=== PATIENT | female | born 1980 | race Hispanic/Latino ===

== ENCOUNTER 2017-08-30 22:52 | Emergency (ER) | payer MEDICAID, SELFPAY ==
[2017-08-30] MEDS ORDERED: Ondansetron HCl/PF 4 MG/2 ML Vial ONE (23:38)
[2017-08-30] MEDS ORDERED: Morphine 2 MG/ML SYRINGE ONE (23:38)
[2017-08-30 23:42] LABS: Bilirubin Negative (Negative); Blood, Urine Negative (Negative); Glucose, Urine (Dipstick) Negative (Negative); Ketone, Urine Negative (Negative); Nitrite Negative (Negative); Protein, Urine (Dipstick) Negative (Neg-Trace); Urobilinogen 0.2 mg/dL (0.2-1.0)
[2017-08-30 23:56] LABS: #Lymphocytes 2.8 thou/uL (1.20-3.40); #Monocytes 0.8 thou/uL (0.11-0.59); #Neutrophils 12.9 thou/uL (1.40-6.50); %Basophils 0.1 % (0.0-1.0); %Eosinophils 0.2 % (0.0-10.0); %Lymphocytes 17.1 % (21.0-51.0); %Monocytes 4.6 % (0.0-10.0); Hematocrit 43.8 % (36.0-47.0); Mean Platelet Volume 8.3 fL (7.4-10.4); Red Blood Cell (RBC) Count 5.01 mill/uL (4.20-5.40); White Blood Cell (WBC) Count 16.6 thou/uL (4.8-10.8)
[2017-08-31] LABS: ALT (SGPT) 21 U/L (8-55); AST (SGOT) 19 U/L (5-34); Alkaline Phosphatase 72 U/L (40-150); Anion Gap 13 mmol/L (10-20); BUN (Urea Nitrogen) 7 mg/dL (7.0-18.7); Bilirubin, Total 0.7 mg/dL (0.2-1.2); Calc. Creatinine Clearance 0 mL/min (70-130); Calcium 8.8 mg/dL (7.8-10.44); Carbon Dioxide 21 mmol/L (22-29); Chloride 104 mmol/L (98-107); Estimated GFR-MDRD Greater than 90; Globulin 3.2 g/dL (2.4-3.5); Lipase 7 U/L (8-78); Protein, Total 7.5 g/dL (6.0-8.3)
[2017-08-31] MEDS ORDERED: Metoclopramide HCl 10 MG/2 ML VIAL ONE (00:53)
[2017-08-31] MEDS ORDERED: Morphine 2 MG/ML SYRINGE ONE (01:50)
--- NOTE | 2017-08-31 08:01 | CT ---
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 . .37 yo female presents with diffuse rlq and llq pain for 1 day. Patient reports intermittent diarrh ea for the last week, for which she saw her pcp this morning and was given lomotil and zofran. Patie nt states that as the day has gone on, she has had bright red blood in her stool and when she wipes. Patient denies HX of hemorrhoids. Denies fever and chills. Reports nausea and vomiting. TECHNIQUE: Axial computed tomography images of the abdomen and pelvis with intravenous contrast. Coronal reformatted images were created and reviewed. COMPARISON: No relevant prior studies available. FINDINGS: Lower thorax: The visualized portions of the lung bases are normal. ABDOMEN: Liver: There are no focal liver lesions present. Gallbladder and bile ducts: The gallbladder is normal. There is no evidence of biliary ductal dilati on. No calcified stones. Pancreas: The pancreas is normal. No ductal dilation. Spleen: The spleen is normal. Adrenals: The adrenal glands are normal. Kidneys and ureters: The kidneys are normal. No hydronephrosis. Stomach and bowel: There is diffuse colonic wall thickening and pericolonic inflammatory stranding c ompatible with colitis of infectious or inflammatory etiology. The stomach is normal. No obstruction . Appendix: A normal appendix is identified. PELVIS: Bladder: The bladder is normal. Reproductive: The uterus is normal. There is a 1.8 cm LEFT ovarian cyst. ABDOMEN and PELVIS: Intraperitoneal space: There is a small amount of free pelvic fluid present. No free air. Bones/joints: No acute fracture. No dislocation. Soft tissues: There is subcutaneous air overlying the RIGHT buttocks probably from medical injection . Vasculature: Normal. No abdominal aortic aneurysm. Lymph nodes: Normal. No enlarged lymph nodes. IMPRESSION: There is diffuse colonic wall thickening and pericolonic inflammatory stranding compatible with coli tis of infectious or inflammatory etiology. Thank you for allowing us to participate in the care of your patient. Dictated and Authenticated by: Eloy Engle MD 08/31/2017 1:59 AM Central Time ([place] \T\ [place]up[place]) FINAL REPORT CT ABDOMEN AND PELVIS WITH ORAL AND IV CONTRAST I agree with the preliminary report given by Dr. Eloy Engle of [facility]. POS: [facility]
== END 2017-08-31 03:06 | disposition home or self-care (01) ==
LOC: ERS 22:52
DX: K52.9 Noninfective gastroenteritis and colitis, unspecified (principal)
CPT/HCPCS: 74177; 80053; 81003; 82274; 83630; 83690; 84703; 85025; 87015; 87045; 87046; 87324; 87449; 87899; 96361; 96372; 96374; 96375; 96376; J2270; J2405; J2765

== ENCOUNTER 2019-02-14 14:12 | Emergency (ER) | payer SELFPAY ==
[2019-02-14 15:35] LABS: #Basophils 0.1 thou/uL (0.0-0.2); #Eosinphils 0.2 thou/uL (0.0-0.7); #Lymphocytes 1.3 thou/uL (1.20-3.40); #Monocytes 0.6 thou/uL (0.11-0.59); #Neutrophils 7.1 thou/uL (1.40-6.50); %Basophils 0.8 % (0.0-1.0); %Eosinophils 2.6 % (0.0-10.0); %Lymphocytes 14.3 % (21.0-51.0); %Monocytes 6.2 % (0.0-10.0); %Neutrophils 76.1 % (42.0-75.0); Hemoglobin 16.3 g/dL (12.0-16.0); Mean Corpuscular Hemoglobin 31.1 pg (27.0-31.0); Mean Corpuscular Volume 91.5 fL (78.0-98.0); Mean Platelet Volume 8.4 fL (7.4-10.4); Platelet Count 259 thou/uL (130-400); RBC Distribution Width 11.9 % (11.5-14.5); Red Blood Cell (RBC) Count 5.23 mill/uL (4.20-5.40); White Blood Cell (WBC) Count 9.4 thou/uL (4.8-10.8)
[2019-02-14 15:44] LABS: BHCG - Serum Negative (NEGATIVE); Pregs Control Background? CLEAR/WHITE (CLR/WHITE); Pregs Control Bar Appear? YES (CONTROL BAR)
--- NOTE | 2019-02-14 16:04 | RAD ---
XR Chest 1 View Portable History: [Chest pain. Nausea/vomiting] Comparison: None. Findings: Lungs are clear. No pneumothorax or effusion. Cardiac silhouette and mediastinal contours a re within normal limits. Impression: No acute intrathoracic abnormality.
[2019-02-14] MEDS ORDERED: Ketorolac Tromethamine 30 MG/ML VIAL ONE (16:05)
[2019-02-14] MEDS ORDERED: Morphine 4 MG/ML VIAL ONE (16:05)
[2019-02-14 17:05] LABS: Albumin 4.6 g/dL (3.5-5.0)
[2019-02-14 17:06] LABS: Chloride 104 mmol/L (98-107); Potassium 3.6 mmol/L (3.5-5.1); Sodium 138 mmol/L (136-145)
[2019-02-14 17:07] LABS: Calcium 9.5 mg/dL (7.8-10.44); Glucose 97 mg/dL (70-105)
[2019-02-14 17:08] LABS: Globulin 2.9 g/dL (2.4-3.5); Protein, Total 7.5 g/dL (6.0-8.3)
[2019-02-14 17:09] LABS: Anion Gap 13 mmol/L (10-20); Bilirubin, Total 0.6 mg/dL (0.2-1.2); Carbon Dioxide 25 mmol/L (22-29)
[2019-02-14 17:10] LABS: Alkaline Phosphatase 72 U/L (40-150)
[2019-02-14 17:11] LABS: Calc. Creatinine Clearance 0 mL/min (70-130); Estimated GFR-MDRD Greater than 90
[2019-02-14 17:12] LABS: BUN (Urea Nitrogen) 7 mg/dL (7.0-18.7)
[2019-02-14 17:13] LABS: ALT (SGPT) 24 U/L (8-55); AST (SGOT) 22 U/L (5-34)
[2019-02-14 17:14] LABS: Lipase 6 U/L (8-78)
--- NOTE | 2019-02-17 09:06 | EKG ---
Test Reason : Blood Pressure : / mmHG Vent. Rate : 071 BPM Atrial Rate : 071 BPM P-R Int : 120 ms QRS Dur : 082 ms QT Int : 376 ms P-R-T Axes : 017 037 018 degrees QTc Int : 408 ms Normal sinus rhythm Normal ECG Confirmed by SHARMIN CISNEROS D.O. ([id number]), news copy editor ANUSHKA SUNSHINE ([id number]) on 02/17/2019 9:05:53 AM Referred By: Confirmed By:SHARMIN CISNEROS D.O.
== END 2019-02-14 17:18 | disposition home or self-care (01) ==
LOC: ERS 14:12
DX: S16.1XXA Strain of muscle, fascia and tendon at neck level, initial encounter (principal); X58.XXXA Exposure to other specified factors, initial encounter
CPT/HCPCS: 36415; 71045; 80053; 83690; 84703; 85025; 87804; 93005; 96374; 96375; J1885; J2270

== ENCOUNTER 2019-08-23 19:15 | Emergency (ER) | payer SELFPAY ==
[2019-08-23 20:25] LABS: #Basophils 0.1 thou/uL (0.0-0.2); #Eosinphils 0.1 thou/uL (0.0-0.7); #Lymphocytes 2.5 thou/uL (1.20-3.40); #Monocytes 0.6 thou/uL (0.11-0.59); #Neutrophils 7.5 thou/uL (1.40-6.50); %Basophils 0.6 % (0.0-1.0); %Eosinophils 0.5 % (0.0-10.0); %Lymphocytes 23.1 % (21.0-51.0); %Monocytes 5.2 % (0.0-10.0); %Neutrophils 70.6 % (42.0-75.0); Hemoglobin 13.9 g/dL (12.0-16.0); Mean Corpuscular HGB CONC 35.6 g/dL (32.0-36.0); Mean Corpuscular Hemoglobin 32.1 pg (27.0-31.0); Mean Corpuscular Volume 90.3 fL (78.0-98.0); Mean Platelet Volume 8.3 fL (7.4-10.4); Platelet Count 261 thou/uL (130-400); RBC Distribution Width 11.4 % (11.5-14.5); Red Blood Cell (RBC) Count 4.34 mill/uL (4.20-5.40); White Blood Cell (WBC) Count 10.7 thou/uL (4.8-10.8)
[2019-08-23 20:40] LABS: BHCG - Serum Negative (NEGATIVE); Pregs Control Background? CLEAR/WHITE (CLR/WHITE); Pregs Control Bar Appear? YES (CONTROL BAR)
[2019-08-23 20:47] LABS: ALT (SGPT) 15 U/L (8-55); AST (SGOT) 16 U/L (5-34); Albumin 4.6 g/dL (3.5-5.0); Alkaline Phosphatase 66 U/L (40-110); Anion Gap 11 mmol/L (10-20); BUN (Urea Nitrogen) 13 mg/dL (7.0-18.7); Bilirubin, Total 0.6 mg/dL (0.2-1.2); Calc. Creatinine Clearance 0 mL/min (70-130); Calcium 9.1 mg/dL (7.8-10.44); Carbon Dioxide 24 mmol/L (22-29); Chloride 106 mmol/L (98-107); Estimated GFR-MDRD 87; Globulin 2.9 g/dL (2.4-3.5); Glucose 98 mg/dL (70-105); Lipase 8 U/L (8-78); Potassium 3.6 mmol/L (3.5-5.1); Protein, Total 7.5 g/dL (6.0-8.3); Sodium 137 mmol/L (136-145)
--- NOTE | 2019-08-23 20:48 | RAD ---
XR Shoulder Rt 3 View STANDARD: 08/23/2019 8:07 PM CLINICAL INDICATION: Pain COMPARISON: None. FINDINGS: Fracture:No fracture. Arthropathy:None of significance. Incidental findings:None of significance. IMPRESSION: 1. No acute osseous abnormality.
--- NOTE | 2019-08-23 20:49 | RAD ---
XR Elbow Rt 4 View STANDARD: 08/23/2019 8:07 PM CLINICAL INDICATION: Pain COMPARISON: None. FINDINGS: Fracture:No fracture. Arthropathy:None of significance. Incidental findings:None of significance. IMPRESSION: 1. No acute osseous abnormality.
--- NOTE | 2019-08-23 20:52 | RAD ---
Exam: Chest one view HISTORY:Pain Comparison: 02/14/2019 FINDINGS: Lungs: No masses or consolidation. Cardiac silhouette: Normal size Pulmonary vessels: Normal Pleural Spaces: Clear Pneumothorax: None Osseous abnormalities: None of acuity. IMPRESSION: No focal consolidation.
--- NOTE | 2019-08-23 21:24 | CT ---
CT Brain WO Con: 08/23/2019 8:01 PM CLINICAL HISTORY: Trauma. COMPARISON: None. FINDINGS: Hemorrhage: None. Ventricular system: Normal in size and morphology for the patient's age. Cerebral parenchyma: Normal Midline shift: None. Mass: No mass effect. Calvarium: Normal. Visualized Paranasal sinuses: Clear. IMPRESSION: No acute intracranial abnormalities.
--- NOTE | 2019-08-23 21:26 | CT ---
CT Cervical Spine WO Con Indication: Pain/Injury COMPARISON: None FINDINGS: Acute fracture/subluxation: None Spinal alignment: No acute malalignment. Vertebral body heights: Maintained. Cervical spine degenerative change: None of significance. IMPRESSION: No acute osseous abnormality.
--- NOTE | 2019-08-23 21:26 | RAD ---
XR Tib Fib Rt Leg 2 View: 08/23/2019 8:46 PM CLINICAL INDICATION: Trauma, injury COMPARISON: None. FINDINGS: Fracture:No fracture. Arthropathy:None of significance. Incidental findings:None of significance. IMPRESSION: 1. No acute osseous abnormality.
--- NOTE | 2019-08-23 21:31 | CT ---
EXAM: Chest, Abdomen and Pelvic CT scan with contrast: HISTORY: Trauma COMPARISON: None FINDINGS: Mild subpleural patchy densities may be on the basis of atelectasis. Linear density of the right midd le lobe may represent a small area of parenchymal scar. No pleural effusion. No pneumothorax. No acute process of the mediastinal structures. Liver: Unremarkable. Gallbladder:Unremarkable. Pancreas:Unremarkable Spleen:Unremarkable. Adrenal glands:Unremarkable. Kidneys:No renal calculus or acute obstruction.No perinephric hematoma. Bowel: No evidence for bowel obstruction. Urinary Bladder: The urinary bladder is unremarkable. Free Air: No free air. Ascites: No ascites. Osseous structures: No acute osseous abnormalities. IMPRESSION: No acute posttraumatic abnormalities are identified.
[2019-08-23] MEDS ORDERED: Ketorolac Tromethamine 30 MG/ML VIAL ONE ×2 (22:01→22:20)
[2019-08-23 22:35] LABS: Bilirubin Negative (Negative); Blood, Urine 2+ (Negative); Clarity Clear (Clear); Glucose, Urine (Dipstick) Normal (Negative); Leukocyte 75 Leu/uL (Negative); Nitrite Negative (Negative); Protein, Urine (Dipstick) Negative (Neg-Trace); RBC/HPF 0-3 HPF (0-3); Urobilinogen Normal mg/dL (Less than 2)
[2019-08-23 22:44] LABS: Bacteria/HPF Rare-Few HPF (None Seen)
--- NOTE | 2019-08-25 14:44 | EKG ---
Test Reason : Blood Pressure : / mmHG Vent. Rate : 076 BPM Atrial Rate : 076 BPM P-R Int : 118 ms QRS Dur : 080 ms QT Int : 370 ms P-R-T Axes : 012 071 035 degrees QTc Int : 416 ms Normal sinus rhythm Normal ECG Confirmed by RICHARD ALFORD DO ([id number]), general expeditor ANUSHKA SUNSHINE ([id number]) on 08/25/2019 2:43:39 PM Referred By: Confirmed By:RICHARD ALFORD DO
== END 2019-08-23 23:05 | disposition home or self-care (01) ==
LOC: ERS 19:15
DX: S20.221A Contusion of right back wall of thorax, initial encounter (principal); M54.2 Cervicalgia; M79.601 Pain in right arm; R07.9 Chest pain, unspecified; V47.5XXA Car driver injured in collision with fixed or stationary object in traffic accident, initial encounter
CPT/HCPCS: 36415; 70450; 71045; 71260; 72125; 74177; 80053; 81003; 81015; 83690; 84703; 85025; 93005; 96374; J1885

== ENCOUNTER 2020-08-07 07:26 | Outpatient (CLI) | payer OTHER ==
--- NOTE | 2020-08-07 11:18 | ULT ---
OB ULTRASOUND: HISTORY: Positive . Evaluate anatomy. FINDINGS: There is evidence of a single intrauterine gestation in cephalic presentation. Cardiac Doppler demon strates heart tones with a heart rate of 150 b.p.m. The placenta is located anteriorly w ithout evidence of placenta previa. Cervix is not well imaged but measures approximately 3.9 cm base d on transabdominal imaging. There is a normal amount of amniotic fluid with an amniotic fluid index of 18 cm. measurements: Biparietal diameter 5.3 cm, 22 weeks 1 day Head circumference 19.69 cm, 22 weeks Abdominal circumference 16.1 cm, 21 weeks 2 days Femur length 3.47 cm, 21 weeks The estimated gestational age by ultrasound is 21 weeks and 5 days with RONALDO on 12/12/2020. Gestational age by the last menstrual period is 21 weeks and 6 days. The estimated weight by ultrasound is 406 gm (14 ounces). This represents 16th percentile for weight. Cerebellum is not well seen but is grossly within normal limits. The visualized portions of the feta l spine, 4-chamber heart, stomach, bilateral kidneys, urinary bladder, and cord insertion demonstrate a normal sonographic appearance. A 3-vessel cord is not visualized, but there is flow on either jacqueline e of the urinary bladder suggesting a 3-vessel cord. No anomalies are seen on this exam. IMPRESSION: 1. Single intrauterine gestation in cephalic presentation with heart tones documented. Gestat ional age by ultrasound is 21 weeks and 5 days with estimated date of delivery on 12/13/2020. 2. Estimated weight by ultrasound is 406 gm (14 ounces). This represents 16th percentile for weight. 3. Amniotic fluid index is calculated at 18 cm. POS: OFF
== END 2020-08-07 07:27 | disposition home or self-care (01) ==
LOC: BICULT 07:26
PROVIDERS: ATTEND Family Medicine
DX: O09.522 Supervision of elderly multigravida, second trimester (principal); Z3A.21 21 weeks gestation of pregnancy
CPT/HCPCS: 76805

== ENCOUNTER 2020-10-23 19:31 | Observation (INO) | payer OTHER, SELFPAY ==
[2020-10-23 20:18] VITALS: BMI 30.7
[2020-10-23] MEDS ORDERED: hydrALAZINE 20 MG/ML VIAL SLOW IVP PRN ×2 (20:45→22:32)
[2020-10-23 21:22] LABS: Bacteria/HPF None Seen HPF (None Seen); Bilirubin Negative (Negative); Blood, Urine Negative (Negative); Clarity Clear (Clear); Glucose, Urine (Dipstick) Normal (Negative); Ketone, Urine 100 mg/dL (Negative); Leukocyte Negative Leu/uL (Negative); Nitrite Negative (Negative); Protein, Urine (Dipstick) Negative (Neg-Trace); RBC/HPF 0-3 HPF (0-3); Specific Gravity, Urine 1.022 (1.002-1.036); Squamous Epithelial 0-3 HPF (0-3); Urobilinogen Normal mg/dL (Less than 2); WBC/HPF 0-3 HPF (0-3)
[2020-10-23 21:24] LABS: Urine Culture Reflex No No
[2020-10-23 21:35] LABS: #Basophils 0.1 thou/uL (0.0-0.2); #Eosinphils 0.1 thou/uL (0.0-0.7); #Lymphocytes 2.8 thou/uL (1.20-3.40); #Monocytes 0.6 thou/uL (0.11-0.59); #Neutrophils 3.9 thou/uL (1.40-6.50); %Basophils 0.7 % (0.0-1.0); %Eosinophils 0.8 % (0.0-10.0); %Lymphocytes 38.3 % (21.0-51.0); %Neutrophils 52.2 % (42.0-75.0); Hemoglobin 12.2 g/dL (12.0-16.0); Mean Corpuscular HGB CONC 34.9 g/dL (32.0-36.0); Mean Corpuscular Hemoglobin 31.3 pg (27.0-31.0); Mean Corpuscular Volume 89.6 fL (78.0-98.0); Platelet Count 187 thou/uL (130-400); RBC Distribution Width 12.1 % (11.5-14.5); Red Blood Cell (RBC) Count 3.91 mill/uL (4.20-5.40); White Blood Cell (WBC) Count 7.4 thou/uL (4.8-10.8)
[2020-10-23 22:00] LABS: Anion Gap 14 mmol/L (10-20); BUN (Urea Nitrogen) 10 mg/dL (7.0-18.7); Calc. Creatinine Clearance 157 mL/min (70-130); Calcium 8.4 mg/dL (7.8-10.44); Carbon Dioxide 18 mmol/L (22-29); Chloride 108 mmol/L (98-107); Glucose 75 mg/dL (70-105); Potassium 3.5 mmol/L (3.5-5.1); Sodium 136 mmol/L (136-145)
[2020-10-23] MEDS ORDERED: Betamet Acet/Betamet Na Ph 30 MG/5 ML VIAL ONE (22:16)
[2020-10-23] MEDS ORDERED: Lidocaine 1% (PF) 30 ML VIAL SC PRN (22:32)
[2020-10-23] MEDS ORDERED: Butorphanol Tartrate 1 MG/ML VIAL SLOW IVP PRN (22:32)
[2020-10-23] MEDS ORDERED: NS / Oxytocin 40 units/1000ml 1,000 ML IV PRN (22:32)
[2020-10-23] MEDS ORDERED: Promethazine HCl 25 MG/ML VIAL IM PRN (22:32)
[2020-10-23] MEDS ORDERED: Ondansetron PF 4 MG/2 ML Vial IVP PRN (22:32)
[2020-10-23] MEDS ORDERED: NIFEdipine 10 MG CAP ONE (22:35)
[2020-10-23] MEDS: Betamet Acet/Betamet Na Ph 30 MG/5 ML VIAL IM SCH (22:52)
[2020-10-23] MEDS ORDERED: Lactated Ringer's 1,000 ML IV SCH (23:00)
[2020-10-23 23:06] LABS: Hemoglobin 11.8 g/dL (12.0-16.0); Mean Corpuscular Hemoglobin 32.3 pg (27.0-31.0); Mean Corpuscular Volume 92.3 fL (78.0-98.0); Mean Platelet Volume 8.9 fL (7.4-10.4); Platelet Count 158 thou/uL (130-400); RBC Distribution Width 12.2 % (11.5-14.5); Red Blood Cell (RBC) Count 3.65 mill/uL (4.20-5.40); White Blood Cell (WBC) Count 6.5 thou/uL (4.8-10.8)
--- NOTE | 2020-10-23 23:24 | HP ---
TIME OF SERVICE: 2199. PRESENTING COMPLAINT: Cramping, history of UTI, 32 weeks' gestation. HISTORY OF PRESENT ILLNESS: Ms. Jay Sánchez is a 40-year-old 5, para 4, 32 weeks by stated EDC. Antepartum record not available. She reports being started on antibiotics for UTI approximately 3 to 4 days ago. She reports 5 days of lower abdominal cramping that comes and goes about every 10 to 20 minutes. She denies bleeding or rupture of membranes. She denies fever. She was diagnosed with UTI at [facility]. LEAD RECREATION ASSISTANT HISTORY: at term x4; gestational diabetes, diet controlled. PAST MEDICAL HISTORY: None. PAST SURGICAL HISTORY: None. ALLERGIES: NONE. MEDICATIONS: Keflex, baby aspirin, and vitamins. SOCIAL HISTORY: Denies tobacco, alcohol, or drug abuse. FAMILY HISTORY: Noncontributory. REVIEW OF SYSTEMS: Noncontributory. PHYSICAL EXAMINATION: GENERAL: female, occasional discomfort. VITAL SIGNS: Temperature 98.2, pulse 92, respirations 18, blood pressure 128/72. HEENT: Within normal limits. LUNGS: Clear to auscultation bilaterally. HEART: Regular rate and rhythm. ABDOMEN: No CVA tenderness noted. Fundal height 32. FHTs 140s. PELVIC: Vulva without lesions. Vagina without discharge. Cervix; 2, 50, -2, by RN exam, cephalic, lot of adhesions. EXTREMITIES: Without clubbing, cyanosis, or edema. LABORATORY DATA: No urine cultures in the system. White count is 7.4, hematocrit is 35.1, platelet count is 187. Urinalysis is positive for ketones, otherwise negative. IMPRESSION: Contractions and cervical dilatation at 32 weeks' gestation in presence of partially treated urinary tract infection. PLAN: 1. Observation. 2. Antepartum corticosteroids. 3. Nifedipine for labor. 4. Continue Keflex 500 p.o. t.i.d. Job ID: [id number]
[2020-10-23 23:33] LABS: Syphilis Antibody Nonreactive (Nonreactive); Syphilis Antibody Index 0.03 S/CO (<1.00 Non-Reactive)
[2020-10-23 23:34] LABS: HBSAg Index 0.18 S/CO (0-0.99); HIV (1/2) Antibody/Antigen Non-Reactive (NonReactive); HIV 1/2 INDEX 0.08 S/CO (<1.00); Hep B Surf Ag Non-Reactive S/CO (NonReactive)
[2020-10-24] MEDS ORDERED: NIFEdipine 10 MG CAP ONE ×2 (03:01)
[2020-10-24] MEDS: Lactated Ringer's 1,000 ML IV SCH ×3 (04:43→19:01)
[2020-10-24 05:46] LABS: SARS-CoV-2 MS2 Positive; SARS-CoV-2 N Gene Negative; SARS-CoV-2 S Gene Negative; SARS-CoV-2 by NAA Not Detected (NotDetected); SARS-CoV-2 orf1ab Negative
--- NOTE | 2020-10-24 07:20 | PRG ---
DATE OF SERVICE: 10/24/2020 TIME OF SERVICE: 0645. The patient is resting comfortably. She has occasional contractions. She denies leakage of fluid. Active fetus. PHYSICAL EXAMINATION: VITAL SIGNS: Blood pressure 118/72, pulse 85, respirations 18. ABDOMEN: Soft and nontender. No CVA tenderness. No suprapubic tenderness. Vaginal exam is deferred. Perineum is dry. EXTREMITIES: No clubbing, cyanosis, or edema. monitoring reveals baseline 140s to 150s, positive accelerations, no decelerations, occasional uterine irritability approximately every 30 minutes. IMPRESSION: Possible arrested labor versus cervical dilatation at 32 weeks' gestation, with treated urinary tract infection, COVID negative. PLAN: Continue bed rest. Continue oral Keflex as prescribed by Dr. Milan. Second dose of betamethasone at approximately 2300 on 10/24. Anticipate discharge home at that time. Dr. Montana coming on as OB hospitalist, we will check the patient out to him. Job ID: [id number]
[2020-10-24] MEDS ORDERED: Prenatal Vitamin 1 TAB PO SCH (09:00)
[2020-10-24] MEDS ORDERED: Aspirin Chewable 81 MG TAB PO SCH (09:00)
[2020-10-24] MEDS ORDERED: CEPHALEXIN 500 MG PO SCH (09:00)
[2020-10-24] MEDS: Cephalexin 250 MG CAP PO SCH ×3 (09:54→21:08)
[2020-10-24 10:14] VITALS: BP 89/52; TEMP 97.7
[2020-10-24] MEDS: Betamet Acet/Betamet Na Ph 30 MG/5 ML VIAL IM SCH (22:48)
--- NOTE | 2020-10-24 23:28 | PDOC.BPN ---
<Missael Olivares - Last Filed: 10/24/20 23:23> - Brief Progress Note Encounter Date: 10/24/20 Encounter Time: 23:28 Patient has now received 2 doses of betamethasone while receiving continued treatment for her UTI. She has shown no signs of pyelonephritis at this point. She has had intermittent contractions through the day the the patient was feeling so she was checked again and found to be unchanged, ruling out pre-term labor. status has remained reassuring throughout her stay. We discussed with the patient the need for her to continue her oral antibiotics after discharge. She has a follow up with her primary OB, Dr. Milan, in 4 days. We discussed return precautions with the patient. <Axel Montana - Last Filed: 10/25/20 06:12> Addendum - Attending - Attending Attestation Date/Time: 10/25/20 0611 I personally evaluated the patient and discussed the management with Dr. Olivares. I agree with the History, Examination, Assessment and Plan documented above.
== END 2020-10-24 23:35 | disposition home health service (06) ==
LOC: L&D/OP 19:31 → L&D 22:02
PROVIDERS: ADMIT Obstetrics & Gynecology; ATTEND Obstetrics & Gynecology
DX: O47.03 False labor before 37 completed weeks of gestation, third trimester (principal); O24.410 Gestational diabetes mellitus in pregnancy, diet controlled; O34.33 Maternal care for cervical incompetence, third trimester; O23.43 Unspecified infection of urinary tract in pregnancy, third trimester; O09.523 Supervision of elderly multigravida, third trimester; Z3A.32 32 weeks gestation of pregnancy; Z79.82 Long term (current) use of aspirin; Z20.828 Contact with and (suspected) exposure to other viral communicable diseases
CPT/HCPCS: 36415; 80048; 81001; 85025; 86780; 86850; 86900; 86901; 87340; 87389; 87635; 96372; 96374; 99285; G0378; J0595; J0702; U0003

== ENCOUNTER 2020-11-14 23:13 | Day surgery (SDC) | payer OTHER ==
[2020-11-14 23:51] VITALS: BMI 29.2
[2020-11-15] MEDS ORDERED: hydrALAZINE 20 MG/ML VIAL SLOW IVP PRN (00:07)
--- NOTE | 2020-11-15 00:07 | PDOC.FPROB ---
FMR OB H&P: HPI - History of Present Illness Chief Complaint: Ctx Indentification: 40yo @ 36wks presents for ctx and urinary sxs History of Present Illness: 40yo @ 36wks complicated by AMA and A1GDM presents for ctx and urinary sxs. Patient was seen in L&D at 32weeks for labor r/o, at that time was given steroids, antibiotics for UTI, and SVE was 2cm/50%. Patient states that for past 1 week she has had intermittent ctx, over past 24-48 hours these have increased in intensity and frequency to about [id number]. Associated suprapubic pain, dysuria, and frequency. Endorses good movement. Denies any fever/chills, n/v, CP, SOB, ZHENG, vision changes, or recent illnesses. Denies change in vaginal discharge or sudden gush of fluid. Primary Care Physician: Bjorn FMR OB H&P: Current - Care : 5 Para: 4004 Gestational age: 36 FMR OB H&P: History - Past Medical History PMH: Denies - OB History OB History: A1GDM in current Previous x4 - OPERATING ENGINEER History OPERATING ENGINEER History: Denies. - Surgical History Sx History: None - Social History Social History: No tob, EtOH, or illicits. - Family History Family History: Noncontributory FMR OB H&P: Medications - Current Home Medications: Medication Instructions Recorded Confirmed Type Pnv No.95/Ferrous Fum/Folic AC 1 tab PO DAILY 02/15/17 11/14/20 History [ Tablet] Aspirin Chewable [Aspirin Chewable 1 tab PO DAILY 10/23/20 11/14/20 History Tablet] Allergies/Adverse Reactions: Allergies Allergy/AdvReac Type Severity Reaction Status Date / Time No Known Allergies Allergy Verified 11/14/20 23:52 FMR OB H&P: ROS - Review of Systems General: denies: fever/chills, night sweats, fatigue, recent trauma Eyes: denies: vision changes, double vision ENT: denies: nasal congestion, rhinorrhea, sore throat Cardiovascular: denies: chest pain, palpitation, edema Respiratory: denies: cough, congestion, shortness of breath Gastrointestinal: reports: abdominal pain. denies: nausea, vomiting, diarrhea, constipation Genitourinary (Female): reports: dysuria, polyuria, hesitancy, contractions. denies: incontinence, hematuria, vaginal discharge, vaginal bleeding Musculoskeletal: reports: pain (lower back pain) Integumentary: denies: rash Psychological: denies: depression, anxiety FMR OB H&P: Vital Signs - Maternal Vital signs: T 98.3, HR 75, RR 18, BP 114/61 - Heart Tones Baseline: 140 Variability: moderate Acceleration: present Deceleration: absent Category: category 1 Valatie contractions every: q10min FMR OB H&P: Physical Exam - Physical Exam General: NAD, awake, alert and oriented HEENT: PERRLA, EOMI, MMM, conjunctiva clear Neck: trachea midline Heart: RRR, normal S1/S2, no murmurs/rubs/gallops, no edema General: CTAB, no respiratory distress, good air movement, no rales/rhonchi, no wheezing Abdomen: soft, bowel sound present Deviation from normal: Suprapubic TTP, no rebound or guarding. No CVA tenderness Deviation from normal: Lower back soreness to light palpation Neurological: no focal deficit Skin: no rash Psychiatric: intact recent and remote memory - Pelvic Exam Vulva: normal hair distribution Deviation from normal: Erythema of labia, swelling and tenderness Cervix: no masses, no lesions, no blood SVE: 2/50/-3 FMR OB H&P: A/P - Problem List (1) Dysuria during Status: Acute Code(s): O26.899 - OTH RELATED CONDITIONS, UNSPECIFIED TRIMESTER; R30.0 - DYSURIA (2) contractions Status: Acute Code(s): O47.9 - FALSE LABOR, UNSPECIFIED Disposition: 40yo @ 36wks complicated by AMA and A1GDM presents for ctx and urinary sxs. # labor r/o - 36wks today - S/p steroids at 32 weeks - SVE 2cm/50/-3, unchanged from labor r/o at 32 weeks - Contractions q10min on monitor, Cat 1 FHT - spaced to q15min - Endorses good movement, no LOF or vaginal bleeding. #Dysuria/vaginal pain - VSS, afebrile - Clean catch UA with 21-50 squams - Straight cath UA clean other than ketones - Urine Culture obtained - VP3 obtained - Spec exam with labial swelling, erythema and tenderness, suspected yeast infection - Given morphine and phenergan for pain - Recommend Monistat 7 PCP: Bjorn Dispo: Straight Cath UA negative for UTI. Culture obtained. VP3 obtained. Suspected yeast infection. Recommend good hygiene, barrier cream, and Monistat 7. SVE unchanged and ctx spaced, no evidence of labor. S/p steroids at 32 weeks. Encourage hydration. Tylenol prn. Labor/return precautions given. Patient voiced understanding and agreement. Discharged home. All questions answered. Discussion: Date/Time: 11/15/206 This H&P was discussed with Dr. Hurtado who agrees with the above documentation and plan. Addendum - Attending - Attending Attestation Date/Time: 11/16/20932 I personally evaluated the patient and discussed the management with Dr. Lovell I agree with the History, Examination, Assessment and Plan documented above with any addition or exceptions noted below. PT reports several days of sharp llq pain, pain of vaginal area with urination. On exam vestibular region very erythematous in, very tender to light touch. vp3 has returned and is positve for gardinella. clinical features consistent with yeast vulvovaginitis. Pt given instructions to use a barrior cream and monistat. Metronidazole will be called in for BV. 7.
[2020-11-15 00:16] LABS: Bacteria/HPF 2+ HPF (None Seen); Bilirubin Negative (Negative); Blood, Urine Negative (Negative); Clarity Turbid (Clear); Glucose, Urine (Dipstick) Normal (Negative); Ketone, Urine Negative (Negative); Leukocyte 500 Leu/uL (Negative); Nitrite Negative (Negative); Protein, Urine (Dipstick) Negative (Neg-Trace); Squamous Epithelial 21-50 HPF (0-3); Urobilinogen Normal mg/dL (Less than 2); WBC/HPF 21-50 HPF (0-3)
[2020-11-15 00:46] LABS: Bacteria/HPF None Seen HPF (None Seen); Bilirubin Negative (Negative); Blood, Urine Negative (Negative); Clarity Clear (Clear); Glucose, Urine (Dipstick) Normal (Negative); Ketone, Urine 20 mg/dL (Negative); Leukocyte Negative Leu/uL (Negative); Mucous/LPF 1+ LPF (<2+); Nitrite Negative (Negative); Protein, Urine (Dipstick) Negative (Neg-Trace); RBC/HPF 0-3 HPF (0-3); Squamous Epithelial 0-3 HPF (0-3); Urobilinogen Normal mg/dL (Less than 2); WBC/HPF 0-3 HPF (0-3)
[2020-11-15] MEDS ORDERED: Morphine 10 MG/ML VIAL IM SCH (01:30)
[2020-11-15] MEDS ORDERED: Promethazine HCl 25 MG/ML VIAL IM SCH (01:30)
== END 2020-11-15 01:40 | disposition home or self-care (01) ==
LOC: L&D/OP 23:13
PROVIDERS: ATTEND Family Medicine
DX: O47.03 False labor before 37 completed weeks of gestation, third trimester (principal); O24.410 Gestational diabetes mellitus in pregnancy, diet controlled; O23.593 Infection of other part of genital tract in pregnancy, third trimester; B96.89 Other specified bacterial agents as the cause of diseases classified elsewhere; O26.893 Other specified pregnancy related conditions, third trimester; R30.0 Dysuria; O09.523 Supervision of elderly multigravida, third trimester; Z3A.36 36 weeks gestation of pregnancy; Z79.82 Long term (current) use of aspirin
CPT/HCPCS: 81001; 87086; 87480; 87510; 87660; J2270; J2550

== ENCOUNTER 2020-12-05 07:49 | Outpatient (CLI) | payer OTHER ==
[2020-12-05 22:14] LABS: SARS-CoV-2 PCR by NAA Not Detected (NotDetected)
== END 2020-12-05 07:50 | disposition home or self-care (01) ==
LOC: LABBT 07:49
PROVIDERS: ATTEND Family Medicine
DX: Z01.812 Encounter for preprocedural laboratory examination (principal); Z20.822 Contact with and (suspected) exposure to COVID-19
CPT/HCPCS: 87635; U0003; U0005

== ENCOUNTER 2020-12-08 18:00 | Inpatient (IN) | payer MEDICAID, OTHER, SELFPAY ==
[~2020-12-08 18:00] MED LIST: Bupivacaine 0.25% HCL 30 ML VIAL ONE; ePHEDrine 50 MG/ML VIAL ONE
[2020-12-08] MEDS ORDERED: Lidocaine 1% (PF) 30 ML VIAL SC PRN (19:19)
[2020-12-08] MEDS ORDERED: Ondansetron PF 4 MG/2 ML Vial IVP PRN (19:19)
[2020-12-08] MEDS ORDERED: hydrALAZINE 20 MG/ML VIAL SLOW IVP PRN (19:19)
[2020-12-08] MEDS ORDERED: Methylergonovine 0.2 MG/ML VIAL IM PRN (19:19)
[2020-12-08] MEDS ORDERED: HYDROcodone/Acetaminophen 5/325 mg Tablet PO PRN (19:19)
[2020-12-08] MEDS ORDERED: Misoprostol 200 MCG TAB PR PRN (19:19)
[2020-12-08] MEDS ORDERED: Carboprost 250 MCG/ML AMP IM PRN (19:19)
[2020-12-08] MEDS ORDERED: NS / Oxytocin 40 units/1000ml 1,000 ML IV PRN (19:19)
[2020-12-08] MEDS ORDERED: Ibuprofen 800 MG TAB PO PRN (19:19)
[2020-12-08] MEDS ORDERED: Promethazine HCl 25 MG/ML VIAL IM PRN (19:19)
[2020-12-08] MEDS ORDERED: Diphenoxylate HCl/Atropine Tablet PO PRN (19:19)
[2020-12-08] MEDS ORDERED: NS w/ Oxytocin 30 units 500 ML IV PRN (19:24)
[2020-12-08 19:40] LABS: Hemoglobin 12.5 g/dL (12.0-16.0); Mean Corpuscular HGB CONC 34.1 g/dL (32.0-36.0); Mean Corpuscular Hemoglobin 29.6 pg (27.0-31.0); Mean Corpuscular Volume 86.7 fL (78.0-98.0); Mean Platelet Volume 9.7 fL (7.4-10.4); Platelet Count 183 thou/uL (130-400); RBC Distribution Width 12.5 % (11.5-14.5); Red Blood Cell (RBC) Count 4.23 mill/uL (4.20-5.40); White Blood Cell (WBC) Count 7.7 thou/uL (4.8-10.8)
[2020-12-08] MEDS: Lactated Ringer's 1,000 ML IV SCH (19:40)
[2020-12-08 19:51] LABS: Glucose 89 mg/dL (70-105)
[2020-12-08 20:15] LABS: HBSAg Index 0.21 S/CO (0-0.99); Hep B Surf Ag Non-Reactive S/CO (NonReactive); Syphilis Antibody Nonreactive (Nonreactive); Syphilis Antibody Index 0.04 S/CO (<1.00 Non-Reactive)
[2020-12-08 20:24] VITALS: BMI 29.7
[2020-12-08] MEDS: Misoprostol 100 MCG TAB VAG SCH (21:24)
[2020-12-09] MEDS: Misoprostol 100 MCG TAB VAG SCH ×3 (00:36→13:41)
[2020-12-09] MEDS ORDERED: Fentanyl 4 mcg/Bup 0.1% Cadd 100 ML ONE ×2 (01:12→09:04)
[2020-12-09] MEDS ORDERED: ePHEDrine 50 MG/ML VIAL SLOW IVP PRN (01:43)
[2020-12-09] MEDS ORDERED: diphenhydrAMINE 50 MG/ML VIAL IVP PRN (01:43)
[2020-12-09] MEDS ORDERED: Promethazine HCl 25 MG/ML VIAL IM PRN ×2 (01:43→10:30)
[2020-12-09] MEDS ORDERED: Naloxone HCl 0.4 mg/ml Vial IVP PRN ×2 (01:43)
[2020-12-09] MEDS ORDERED: Ondansetron PF 4 MG/2 ML Vial IVP PRN ×2 (01:43→10:30)
[2020-12-09] MEDS ORDERED: Acetaminophen 325 MG TAB PO PRN (01:43)
[2020-12-09] MEDS ORDERED: Lactated Ringer's 500 ML IV PRN (01:43)
[2020-12-09] MEDS ORDERED: Communication Order-Pharmacy FS SCH (01:45)
[2020-12-09] MEDS ORDERED: Fentanyl 4 mcg/Bupivacaine 0.1% Cassette 100 ML EPIDURAL SCH (01:45)
[2020-12-09] MEDS ORDERED: Misoprostol 200 MCG TAB ONE (08:00)
[2020-12-09] MEDS ORDERED: Lidocaine 1% (PF) 30 ML VIAL ONE (08:00)
[2020-12-09] MEDS ORDERED: Carboprost 250 MCG/ML AMP ONE (08:01)
[2020-12-09] MEDS ORDERED: Methylergonovine 0.2 MG/ML VIAL ONE (08:01)
[2020-12-09] MEDS ORDERED: Lanolin Ointment 7 GM TUBE TOP PRN (10:30)
[2020-12-09] MEDS ORDERED: Milk Of Magnesia 30 ML UDCUP PO PRN (10:30)
[2020-12-09] MEDS ORDERED: Benzocaine-Menthol 82.5 ML CAN TOP PRN (10:30)
[2020-12-09] MEDS ORDERED: Bisacodyl 10 MG SUPP PR PRN (10:30)
[2020-12-09] MEDS ORDERED: hydrALAZINE 20 MG/ML VIAL SLOW IVP PRN (10:30)
[2020-12-09] MEDS ORDERED: diphenhydrAMINE 25 MG CAP PO PRN (10:30)
[2020-12-09] MEDS ORDERED: NS w/ Oxytocin 30 units 500 ML IVPB SCH (10:45)
[2020-12-09] MEDS: HYDROcodone/Acetaminophen 5/325 mg Tablet PO PRN (12:21)
[2020-12-09] MEDS: Ibuprofen 800 MG TAB PO SCH ×2 (13:27→21:23)
[2020-12-09] MEDS: Ferrous Sulfate 325 MG TAB PO SCH (13:42)
[2020-12-09] MEDS ORDERED: Lactated Ringer's 1,000 ML IV SCH (21:15)
[2020-12-09] MEDS: Docusate Calcium (SURFAK) 240 MG CAP PO SCH (21:23)
[2020-12-10] MEDS: Ibuprofen 800 MG TAB PO SCH ×3 (05:45→21:38)
[2020-12-10] MEDS: Ferrous Sulfate 325 MG TAB PO SCH ×2 (07:42→15:23)
[2020-12-10] MEDS ORDERED: Adacel (T-DAP) 0.5 ML SYRINGE IM ONE (09:00)
[2020-12-10] MEDS: Prenatal Vitamin 1 TAB PO SCH (10:42)
[2020-12-10] MEDS: Docusate Calcium (SURFAK) 240 MG CAP PO SCH ×2 (10:42→21:38)
[2020-12-10] MEDS: HYDROcodone/Acetaminophen 5/325 mg Tablet PO PRN (10:43)
[2020-12-11] MEDS: Ibuprofen 800 MG TAB PO SCH ×2 (06:10→15:00)
[2020-12-11 07:58] VITALS: BP 94/52; TEMP 98.4
[2020-12-11] MEDS: Docusate Calcium (SURFAK) 240 MG CAP PO SCH (10:08)
[2020-12-11] MEDS: Prenatal Vitamin 1 TAB PO SCH (10:08)
[2020-12-11] MEDS: Ferrous Sulfate 325 MG TAB PO SCH (10:09)
[2020-12-11] MEDS: HYDROcodone/Acetaminophen 5/325 mg Tablet PO PRN (10:11)
[2020-12-11] MEDS: Lactated Ringer's 1,000 ML IV SCH (10:35)
== END 2020-12-11 18:25 | disposition home or self-care (01) | DRG 807 ==
LOC: L&D 18:45 → 3SW 12-09 12:10
PROVIDERS: ADMIT Family Medicine; ATTEND Family Medicine
PROC: 10E0XZZ Delivery of Products of Conception, External Approach (ICD-10-PCS; principal; 2020-12-09)
DX: O24.429 Gestational diabetes mellitus in childbirth, unspecified control (principal); Z37.0 Single live birth; Z3A.39 39 weeks gestation of pregnancy; Z20.822 Contact with and (suspected) exposure to COVID-19
CPT/HCPCS: 36415; 36416; 51702; 82947; 85027; 86780; 86850; 86900; 86901; 87340; J2590; J3490; S0020

== ENCOUNTER 2023-01-30 18:42 | Emergency (ER) | payer MEDICAID, SELFPAY ==
[2023-01-30 19:27] LABS: BHCG - Serum POSITIVE (NEGATIVE); Pregs Control Background? CLEAR/WHITE (CLR/WHITE); Pregs Control Bar Appear? YES (CONTROL BAR)
[2023-01-30 19:42] LABS: ALT (SGPT) 19 U/L (8-55); AST (SGOT) 22 U/L (5-34); Albumin 4.5 g/dL (3.5-5.0); Alkaline Phosphatase 76 U/L (40-110); Anion Gap 14 mmol/L (10-20); BUN (Urea Nitrogen) 8 mg/dL (7.0-18.7); Bilirubin, Total 0.4 mg/dL (0.2-1.2); Calc. Creatinine Clearance 0 mL/min (70-130); Calcium 9.2 mg/dL (7.8-10.44); Carbon Dioxide 19 mmol/L (22-29); Chloride 108 mmol/L (98-107); Estimated GFR 113; Globulin 3.2 g/dL (2.4-3.5); Glucose 113 mg/dL (70-105); Lipase 10 U/L (8-78); Potassium 3.8 mmol/L (3.5-5.1); Protein, Total 7.7 g/dL (6.0-8.3); Sodium 137 mmol/L (136-145)
[2023-01-30 19:55] LABS: #Basophils 0.1 thou/uL (0.0-0.2); #Eosinphils 0.1 thou/uL (0.0-0.7); #Lymphocytes 2.2 thou/uL (1.20-3.40); #Monocytes 0.7 thou/uL (0.11-0.59); #Neutrophils 10.7 thou/uL (1.40-6.50); %Basophils 0.5 % (0.0-1.0); %Eosinophils 0.9 % (0.0-10.0); %Monocytes 5.2 % (0.0-10.0); %Neutrophils 77.5 % (42.0-75.0); Hemoglobin 14.9 g/dL (12.0-16.0); Mean Corpuscular HGB CONC 35.6 g/dL (32.0-36.0); Mean Corpuscular Hemoglobin 32.9 pg (27.0-31.0); Mean Corpuscular Volume 92.4 fl (78.0-98.0); Platelet Count 232 10x3/uL (130-400); RBC Distribution Width 11.5 % (11.5-14.5); Red Blood Cell (RBC) Count 4.53 mill/uL (4.20-5.40); White Blood Cell (WBC) Count 13.8 10x3/uL (4.8-10.8)
[2023-01-30] MEDS ORDERED: Morphine 4 MG/ML VIAL ONE (21:25)
== END 2023-01-30 22:35 | disposition home or self-care (01) ==
LOC: ERS 18:42
DX: O03.80 Unspecified complication following complete or unspecified spontaneous abortion (principal); D72.829 Elevated white blood cell count, unspecified
CPT/HCPCS: 36415; 76856; 80053; 83690; 84702; 84703; 85025; 86900; 86901; 88305; 93976; 96374; J2270